=== PATIENT | female | born 1980 | race Two or more races ===

== ENCOUNTER 2017-07-20 07:04 | Observation (INO) | payer SELFPAY ==
[2017-07-20 07:30] VITALS: BP 112/71
[2017-07-20] MEDS ORDERED: FLUSH 10 ML SYR IVP PRN (07:35)
[2017-07-20] MEDS: LR(*) 1000 ML BAG 1,000 ML IV PRN ×2 (07:59→08:45)
[2017-07-20 08:16] LABS: PLATELET COUNT, AUTOMATED 187 K/uL (150-450)
[2017-07-20] MEDS ORDERED: NIFEdipine 10 MG CAP PO ONE (10:35)
--- NOTE | 2017-07-20 11:29 | RADIOLOGY IMAGING REPORT ---
FACILITY: [facility] [place] PATIENT NAME: Madeleine Remy : 1980 MR: [id number] V: [id number] EXAM DATE: ORDERING PHYSICIAN: LUIS A PARDO TECHNOLOGIST: [place] [facility] [place] Remy : 1980 Visit/Account:[id number] Date of Sevice: 07/20/2017 Limited OB ultrasound Indication: labor Comparison: None available FINDINGS: Intrauterine gestations: one presentation: Vertex heart rate: 140 bpm Amniotic fluid index: 13.2 cm Largest amniotic fluid pocket 4.2 cm Placenta: Anterior and to the right of midline without previa Cervix: Grossly closed Gestational Parameters: BPD: 8.39 cm 33 weeks and 6 days HC: 30.65 cm 34 weeks and 2 days AC: 28.50 cm 32 weeks and 4 days FL: 6.23 cm 32 weeks and 2 days Average ultrasound age (AUA): 33 weeks and 2 days Estimated gestational age based on given delivery date: 29 weeks and 0 days DEACON: 09/05/2017 based on today's ultrasound age Estimated weight (EFW): 2036 g +/-298 g EFW for given delivery date: Greater than 98th percentile IMPRESSION: 1. Single live intrauterine gestation; estimated ultrasound age of 33 weeks and 2 days, discordant fr om the given dating of 29 weeks and 0 days 2. Estimated weight is greater than the 98th percentile which may be related to improper dating . Report Dictated By: Kb Santana MD at 07/20/2017 11:22 AM Report E-Signed By: Kb Santaan MD at 07/20/2017 11:25 AM WSN:[id number]
[2017-07-22] MEDS ORDERED: PREN-127 PO (11:14)
== END 2017-07-20 12:20 | disposition home or self-care (01) ==
LOC: OB 07:04 → UNDODISOB 11:11
PROVIDERS: ADMIT Obstetrics & Gynecology; ATTEND Obstetrics & Gynecology
DX: O47.03 False labor before 37 completed weeks of gestation, third trimester (principal); Z3A.33 33 weeks gestation of pregnancy
CPT/HCPCS: 59025; 76815; 81001; 82731; 85025; 86850; 86900; 86901; G0378; G0379; J7120; 82310; 82374; 82435; 82565; 82947; 84132; 84295; 84520

== ENCOUNTER → 2017-08-01 | Outpatient (CLI) | payer SELFPAY ==
[~2017-08-01] MED LIST: PREN-127 PO
== END ==
LOC: LAB 09:03
PROVIDERS: ATTEND Obstetrics & Gynecology
DX: Z34.93 Encounter for supervision of normal pregnancy, unspecified, third trimester (principal)
CPT/HCPCS: 87081

== ENCOUNTER 2017-08-20 13:41 | Inpatient (IN) | payer SELFPAY ==
[~2017-08-20] VITALS: Ht 165.1 cm; Wt 78.0 kg
[2017-08-20 13:45] VITALS: BP 122/67; Ht 165.1 cm; Wt 78.0 kg
[2017-08-20] MEDS ORDERED: LIDOCAINE 1% LOCAL 300 MG/30ML INJ PRN (14:00)
[2017-08-20] MEDS ORDERED: fentaNYL CITR 100 MCG/2 ML AMP IVP PRN (14:00)
[2017-08-20] MEDS ORDERED: ceFAZolin(*) 2GM/D5W 50ML 50 ML IVPB PRN (14:00)
[2017-08-20] MEDS ORDERED: OXYTOCIN 30 UNIT/D5LR 500 ML 500 ML IV PRN ×2 (14:00)
[2017-08-20] MEDS ORDERED: METOCLOPRAMIDE 10 MG/2 ML SDV IVP PRN (14:00)
[2017-08-20] MEDS ORDERED: FLUSH 10 ML SYR IVP PRN (14:00)
[2017-08-20] MEDS ORDERED: FAMOTIDINE(*) 20MG/50ML PREMIX 50 ML IVPB PRN (14:00)
--- NOTE | 2017-08-20 14:57 | History & Physical ---
History of Present Illness EDC per LMP: Sep 06, 2017 Chief Complaint Vaginal bleeding History of Present Illness 37-year-old at 37w4d presented to clinic for routine OB visit. She was noted to have large amounts of watery, brown and blood-tinged discharge on exam. She is being admitted for monitoring and induction of labor for concern for early placental abruption. She reports good movement. She is feeling some contractions off and on, but nothing regular. [place] [facility] [place] had late care at 34 weeks 6 days. GBS negative. History Patient's Blood Type: O Positive Rubella Status: Immune Group B Strep Screen: Negative Obstetrical History: Hx 5 SVDs Past Medical History: PMH: Only one kidney PSH: Nephrectomy 7yo Allergies: Coded Allergies: No Known Drug Allergies (Unverified , 07/20/17) Social History: No T/E/D. . Speaks turkish. Family History: Patient reports no known family medical history. Med Rec Home Meds Reported Medications Vits W-Ca,Fe,Fa(<1MG) ( VITAMINS) 1 Each Tablet, 1 EACH PO DAILY, TAB 07/22/17 Review of Systems Constitutional: No Fever Neurological: No Syncope Cardiovascular: No Chest Pain Respiratory: No Shortness of Breath Gastrointestinal: No Nausea, No Vomiting, No Diarrhea Genitourinary: No Dysuria Musculoskeletal: No Pain Psychiatric: No Depression Exam General Exam Vital Signs VS reviewed General Apperance: Alert/Awake/No Acute Distress Neuro: No Gross deficits Eyes: Normal Extraocular Movement & Vison Cardiovascular: Regular Rate and Rhythm Respiratory: No Respiratory Distress, Clear to Auscultation Abdomen: Gravid - Non-Tender Musculoskeletal: No Weakness/Pain Extremities: No Cyanosis,Clubbing or Edema Integumentary: Skin Intact without Lesions or Rash Psychological: Alert & Oriented X3, Appropriate Mood & Affect Vaginal Discharge/Fluid?: Bloody Fluid Cervical Dialation: 4 Cervical Effacement (%): 75 Cervical Consistency: Moderate Cervical Position: Posterior Station: -2 Presentation: Vertex Uterine Contractions(Q min): 5 Uterine Contraction Strength: Mild UC Resting Tone: Soft Fetus Feeling Movement?: Yes FHT Category: I Medical Decision Making Pre-Admit Course Medical Record Review: Yes VTE Prophylasis: Adult Deep Vein Thrombosis/Pulmonary: No Pharmacological Contraindicati: Pt at Low Risk for VTE Mechanical Contraindications: Pt at Low Risk for VTE Assessment and Plan Problems: (1) Vaginal bleeding during Assessment & Plan: 37-year-old at 37w4d presents with presumed placental abruption based on bloody discharge. Will initiate induction with pitocin. heart tones look good. GBS negative. (2) Grand multiparity Assessment & Plan: Grand multiparity: Will be prepared for hemorrhage, she does not have a history of this. (3) Advanced maternal age during in third trimester Assessment & Plan: Advanced maternal age: Genetic screening is too expensive. (4) Supervision of high-risk Problem Qualifiers (1) Supervision of high-risk : Trimester: third trimester Qualified Codes: O09.93 - Supervision of high risk , unspecified, third trimester ROSALIE BRADY MD Aug 20, 2017 14:57
[2017-08-20] MEDS: LR(*) 1000 ML BAG 1,000 ML IV SCH ×2 (15:00→18:16)
[2017-08-20 15:39] LABS: PLATELET COUNT, AUTOMATED 188 K/uL (150-450)
[2017-08-20] MEDS ORDERED: LIDOCAINE/PF 2% 200MG/10ML AMP 200 MG/10 ML AMPUL EPI PRN (17:30)
[2017-08-20] MEDS ORDERED: EPIDURAL KEYS XX PRN (17:30)
[2017-08-20] MEDS ORDERED: LIDO/EPI 2% MPF 1:200,000 20ML EPI PRN (17:30)
[2017-08-20] MEDS ORDERED: FENTANYL/ROPIVACAINE 100 ML BAG EPI PRN (17:30)
[2017-08-20] MEDS ORDERED: BUPIVACAINE 0.25% MPF INJ EPI PRN (17:30)
[2017-08-20] MEDS ORDERED: fentaNYL CITR 100 MCG/2 ML AMP IT PRN (17:30)
[2017-08-20] MEDS ORDERED: ePHEDrine 25 MG/5 ML DISP.SYR IVP PRN (17:30)
[2017-08-20] MEDS ORDERED: BUPIVACAINE 0.5% INJ 30ML VIAL EPI PRN (17:30)
--- NOTE | 2017-08-20 17:49 | Labor Progress Note ---
Labor Subjective Progress Notes Subjective Pt is feeling more painful UCx. Baby is moving well. Labor Objective Vital Signs VS normal Vaginal Discharge/Fluid?: Bloody Fluid (Large amounts of port wine stained fluid after AROM) Cervical Dialation: 5 Cervical Effacement (%): 80 Cervical Consistency: Soft Cervical Position: Posterior Station: -1 Presentation: Vertex Uterine Contractions(Q min): 4 Uterine Contraction Strength: Moderate Fetus FHT Category: I General Exam General Appearance: Alert/Awake/No Acute Distress Cardiovascular: Normal Rhythm & Peripheral Pulses Respiratory: No Respiratory Distress, Clear to Auscultation Abdomen: Gravid - Non-Tender Musculoskeletal: No Weakness/Pain Extremities: No Cyanosis,Clubbing or Edema Integumentary: Skin Intact without Lesions or Rash Psychological: Alert & Oriented X3, Appropriate Mood & Affect Other Result Diagram: 08/20/17 9897 Assessment and Plan Problems: (1) Placental abruption Assessment & Plan: AROM performed with large amounts of port wine stained fluid returned. Discussed risks to baby with this finding, including need for emergent . I have recommended epidural right away in the event an emergency occurs. She is type and screened. Will monitor closely for worsening status. All of her questions were addressed. (2) Grand multiparity Assessment & Plan: Be prepared for hemorrhage. (3) Advanced maternal age during in third trimester Assessment & Plan: No or genetic screening. Problem Qualifiers (1) Placental abruption: Trimester: third trimester Qualified Codes: O45.93 - Premature separation of placenta, unspecified, third trimester ROSALIE BRADY MD Aug 20, 2017 17:49
[2017-08-20] MEDS ORDERED: ONDANSETRON 4 MG/2 ML VIAL ONE (17:50)
--- NOTE | 2017-08-20 18:25 | Anesthesia OB Pre-Anes Eval ---
History of Present Illness Anesthesia Start Date: Aug 20, 2017 Anesthesia Start Time: 17:40 OB Anesthesia Diagnosis: induction - medical EDC: Sep 05, 2017 : 6 Para: 5 Vital Signs: 120/74 88 18 Pain Ratin Result Diagram: 08/20/17 1447 Past Medical History Medical History: other (one kidney) Surgical History: other (kidney removal at 7 yrs old) Previous Anesthesia: general, epidural Attended Childbirth Classes?: No Hx Anesthesia Reactions: No Hx Family Anesthesia Reaction: No Current Medications: pitocin Home Meds Reported Medications Vits W-Ca,Fe,Fa(<1MG) ( VITAMINS) 1 Each Tablet, 1 EACH PO DAILY, TAB 07/22/17 Allergies: Coded Allergies: No Known Drug Allergies (Unverified , 07/20/17) Anesthesia OB ROS Neurological: No migraines/headaches, No seizures, No neuropathy, No other ENT: Denies Tooth caps, Denies Loose teeth, Denies Chipped teeth, Denies Dentures, Denies Bridges, Denies Retainers, Denies Veneers, Denies Implants, Denies Tongue ring, Denies Other Pulmonary: No asthma, No smoker (pks/day/yrs), No other Airway Class: lll Cardiovascular ROS: No edema, No arrhythmia, No other GI ROS: ice chips Last Solids Date: Aug 20, 2017 Last Solids Time: 10:00 ROS: Other (one kidney) Endocrine ROS: No diabetes, No gestational diabetes, No thyroid disorder, No other Musculoskeletal ROS: No low back pain, No low back injury, No scoliosis, No other ASA Classification: 2 Assessment and Plan Anesthesia Plan: NATASHA DUKE CRNA Aug 20, 2017 18:25
--- NOTE | 2017-08-20 18:28 | Procedure Note ---
Anesthetic Placement Note Anesthesia Plan: CSE Permit for Anesthesia Signed: Yes Anesthesia Technique: Patient Sitting Anesthesia Prep: Chlorhexidine Interspace: L 3-4 Local Anesthetic: 1% Lidocaine, 25 Gauge Needle Amount Local - cc's: 3 Anesthesia Needle: 17g Touhy/Schliff Anesthesia Attempts: 1 Loss of Resistance: Normal Saline Depth of NIMCO (cm): 4.5 Epidural Needle Placement: No CSF, No Blood, No Parasthesia Intrathecal Needle: 27 Gauge Pencan Cerebral Spinal Fluid: Yes, Clear Catheter Insertion (cm): 4 Catheter Type: Vincent - Spring Wound Epidural Dressing: Tegaderm, Tape Anesthesia Tray: Lot Number ([id number]), Expiration Date (10/03), Reference Number ([id number]) Anesthesia Medications: Intrathecal Dose: mcg Fentanyl (10), mg Marcaine MPF (2.5), Time (175) Epidural Test Dose: 1.5 Lido/Epi (1:200,000), Dose - mL (3), Time (175), Negative Epidural Infusion: 0.2% Ropivicaine, With Fentanyl 2mcg/ml, Start Time: (1810) Epidural Pump Setting: Bolus Dose - mL (6), Lockout - Minutes (20), Maintenance Rate - mL/hr (6), Maximum per Hour - mL (24) Complications: None NATASHA NICOLE CRNA Aug 20, 2017 18:28
[2017-08-20] MEDS ORDERED: METHYLERGONOVINE MAL 0.2MG/ML IM ONE (18:55)
[2017-08-20] MEDS ORDERED: CARBOPROST TROMETHAM 250MCG/ML IM ONLY ONE (18:55)
[2017-08-20] MEDS ORDERED: INFLUENZA VIRUS VAC 0.5 ML SYR IM ONLY ONE (19:40)
[2017-08-20] MEDS ORDERED: APAP/HYDROCODONE 325/5 TAB PO PRN (19:40)
[2017-08-20] MEDS ORDERED: MAGNESIUM HYDROXIDE* 30ML UDCP PO PRN (19:40)
[2017-08-20] MEDS ORDERED: HYDROCORTISONE 2.5% CR 30GM TB PR PRN (19:40)
[2017-08-20] MEDS ORDERED: IBUPROFEN 800 MG TAB PO SCH (19:40)
[2017-08-20] MEDS ORDERED: ACETAMINOPHEN 325 MG TAB PO PRN (19:40)
[2017-08-20] MEDS ORDERED: LANOLIN OINT 7 GM TUBE TP PRN (19:40)
[2017-08-20] MEDS ORDERED: GLYCERIN/WITCH HAZEL LEAF 1 PK TP PRN (19:40)
[2017-08-20] MEDS ORDERED: BENZOCAINE 20% 60 ML BTL TP PRN (19:40)
--- NOTE | 2017-08-20 19:40 | OB Delivery Note ---
Delivery Note Vaginal Delivery Type: Spont. Vaginal Delivery Delivery Date: Aug 20, 2017 Delivery Time: 19:31 Estimated Gestational Age(wks): 37.4 Labor Stage III (minutes): 3 Delivery Anesthesia: Epidural Infant Sex: Male Edmond Apgars: 1 Minute (8), 5 Minute (9) Delivery Complications: Nuchal Cord (x2), Other (Placental abruption) ROSALIE BRADY MD Aug 20, 2017 19:40
[2017-08-20] MEDS ORDERED: OXYTOCIN 10 UNIT/ML SDV ONE (20:22)
[2017-08-20] MEDS ORDERED: MISOPROSTOL 200 MCG TAB ONE (20:22)
--- NOTE | 2017-08-20 20:31 | Anesthesia Progress Note ---
Progress/Maintenance Anesthesia Note Date: Aug 20, 2017 Anesthesia Note Time: 18:20 Pain Intensity: 0 Pump: On Pump Rate (ML/HR): 6 Motor Level: Bending Knees-Bilateral Dilatation: 6 Position: Left, Tilt Assessment and Plan Anesthesia Plan: CSE Anesthesia Stop Day: Aug 20, 2017 Anesthesia Stop Time: 19:50 Epidural Catheter Removal: Removed Catheter Intact, Yes, Removed by: (Angelita JONES) NATASHA NICOLE CRNA Aug 20, 2017 20:31
[2017-08-20 23:00] VITALS: BP 128/74
[2017-08-20] MEDS: DOCUSATE CALCIUM 240 MG CAP PO SCH (23:06)
[2017-08-21 01:54] VITALS: BP 110/49
[2017-08-21 05:50] VITALS: BP 107/64
[2017-08-21 07:20] VITALS: BP 105/55
--- NOTE | 2017-08-21 08:06 | OB/GYN Progress Note ---
OB Subjective Progress Notes Subjective Doing well. Pain controlled with oral medications. Tolerating regular diet. Ambulating. Voiding. Normal lochia. No preeclampsia symptoms. OB Objective Physical Exam Vital Signs Date Time Temp Pulse Resp B/P (MAP) Pulse Ox O2 Delivery O2 Flow Rate FiO2 08/21/17 05:50 16 107/64 (78) Room Air 08/21/17 01:54 98.8 08/20/17 23:00 77 08/20/17 13:45 95 General Appearance: Alert/Awake/No Acute Distress Neurological: No Gross deficits Eyes: Normal Extraocular Movement & Vison Cardiovascular: Normal Rhythm & Peripheral Pulses Respiratory: No Respiratory Distress, Clear to Auscultation Abdomen: Soft, Non-Tender, Non-Distended, Fundus Firm Musculoskeletal: No Weakness/Pain Extremities: No Cyanosis,Clubbing or Edema Integumentary: Skin Intact without Lesions or Rash Psychological: Alert & Oriented X3, Appropriate Mood & Affect Result Diagram: 08/21/17 0545 Assessment and Plan Problems: (1) care and examination immediately after delivery Assessment & Plan: PPD#1. Meeting milestones. Desires discharge to home today. Discussed routine expectations. Questions answered. Follow up in clinic in 6wks for check. Will fill out [facility] paperwork for IUD in PP period. (2) Placental abruption Status: Resolved Problem Qualifiers (1) Placental abruption: Trimester: third trimester Qualified Codes: O45.93 - Premature separation of placenta, unspecified, third trimester ROSALIE BRADY MD Aug 21, 2017 08:06
[2017-08-21] MEDS ORDERED: LOR5/325 PO (08:07)
[2017-08-21] MEDS ORDERED: IBUP800T37 PO (08:07)
--- NOTE | 2017-08-21 08:09 | OB/GYN Discharge Summary ---
Discharge Summary Reason for Hosp/Final Diag: (1) care and examination immediately after delivery Hospital Course & Plan: PPD#1. Meeting milestones. Desires discharge to home today. Discussed routine expectations. Questions answered. Follow up in clinic in 6wks for check. Will fill out [facility] paperwork for IUD in PP period. (2) Placental abruption Status: Resolved Lates Vital Signs Vital Signs Date Time Temp Pulse Resp B/P (MAP) Pulse Ox O2 Delivery O2 Flow Rate FiO2 08/21/17 05:50 16 107/64 (78) Room Air 08/21/17 01:54 98.8 08/20/17 23:00 77 08/20/17 13:45 95 Weight (Pounds): 172 Result Diagram: 08/21/17 0545 Condition: Improved Discharge: Home, Self [facility] Meds Active Scripts Hydrocodone Bit/Acetaminophen (HYDROCODON-ACETAMINOPHEN 5-325) 1 Each Tablet, 1 EACH PO Q4-6H Y for pain, #20 TAB 0 Refills Prov:ROSALIE RICH MD 08/21/17 Reported Medications Vits W-Ca,Fe,Fa(<1MG) ( VITAMINS) 1 Each Tablet, 1 EACH PO DAILY, TAB 07/22/17 Follow up Referrals: 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
[2017-08-21] MEDS: IBUPROFEN 800 MG TAB PO SCH ×2 (09:09→15:57)
[2017-08-21] MEDS: DOCUSATE CALCIUM 240 MG CAP PO SCH (09:09)
[2017-08-21 12:02] VITALS: BP 91/52
--- NOTE | 2017-08-21 12:51 | DELIVERY NOTE ---
DELIVERY DATE: August 20, 2017 SURGEON: Uma Rich M.D. ANESTHESIA: Epidural by Liliana Newman CRNA PREOPERATIVE DIAGNOSIS: Intrauterine at 37 weeks and 4 days with placental abruption, presenting for induction of labor. POSTOPERATIVE DIAGNOSIS: 1. Intrauterine at 37 weeks and 4 days with placental abruption, presenting for induction of labor. 2. Delivery of viable male infant at 19:31 hours weighing 3050grams with Apgars of 8 at one minute and 9 at five minutes. PROCEDURE Spontaneous vaginal delivery. ESTIMATED BLOOD LOSS 300 mL. INDICATIONS This patient is a 37-year-old 6, para 5 who presented at 37 weeks and 4 days to her routine OB visit. At the time of presentation, she was noting dark brown vaginal discharge. With examination, she was noted to have copious dark blood-tinged discharge. She was, therefore, admitted for further evaluation and induction for presumed placental abruption. At the time of presentation to the floor, she was 4, 70 and -1 station. She was started on Pitocin to induce labor. An amniotomy was then performed at 17:22 hours, at which time she was 5, 80 and -1. There was copious port-wine stained fluid returned after amniotomy. She was able to progress and received an epidural for anesthetic. She was noted to be complete at 19:29 hours and was feeling the urge to push. PROCEDURE The patient was noted to be complete so was placed in dorsolithotomy position and prepped and draped in the usual fashion for vaginal delivery. She was asked to push and was able to deliver the infant spontaneously in the THOMAS position over an intact perineum. Double nuchal cord was noted and delivered around the 's head. The anterior shoulder delivered easily followed by the remainder of the , giving a spontaneous cry and spontaneous movement of all four extremities. The infant's oropharynx and nasopharynx were both suctioned. The was dried and stimulated and passed to mother's abdomen in good condition. After approximately one minute, the cord was clamped x2 and cut. Pitocin 10 units had been administered IM immediately after delivery of the . Additional 30 units of Pitocin was started in IV fluid to help firm the uterus. The placenta delivered immediately at 19:34 hours intact and was passed off the table. The uterine tone was noted to be firm almost immediately and there was 300 mL estimated blood loss at this time. 800 micrograms Cytotec was placed rectally for prophylaxis due to the grand multiparity and presumed placental abruption. The patient tolerated the procedure well and recovered in labor and delivery with her . All sponge and needle counts were correct at the end of this procedure. AIDA
[2017-08-21 15:50] VITALS: BP 104/60
[2017-08-21] MEDS ORDERED: MEASLES,MUMP,RUBELLA VAC 0.5ML SUBQ ONE (19:40)
[2017-08-21] MEDS ORDERED: DIPHTH/TETANUS/ACEL. PERTUSSIS IM ONLY ONE (19:40)
--- NOTE | 2017-08-21 21:27 | Anesthesia Post Eval Note ---
Anesthesia Post Eval Note Vital Signs 08/20/17 08/21/17 08/21/17 13:45 12:02 15:50 Temp 97.6 Pulse 73 Resp 18 B/P (MAP) 104/60 (75) Pulse Ox 95 O2 Delivery Room Air O2 Flow Rate 93.0 Pt able to participate in Eval: Yes Cardiovascular Status: Satisfactory Respiratory Status: Satisfactory Pain Managment: Satisfactory PO Nausea/Vomiting: Satisfactory Temperature Management: Satisfactory Mental Status: Satisfactory, Alert, Oriented X3 Post-Op Hydration Status: Satisfactory, Tolerating PO Well Anesthesia Type: NATASHA DUKE CRNA Aug 21, 2017 21:27
== END 2017-08-21 21:30 | disposition home or self-care (01) | DRG 774 ==
LOC: OB 13:41
PROVIDERS: ADMIT Obstetrics & Gynecology; ATTEND Obstetrics & Gynecology
PROC: 10E0XZZ Delivery of Products of Conception, External Approach (ICD-10-PCS; principal; 2017-08-20)
PROC: 10907ZC Drainage of Amniotic Fluid, Therapeutic from Products of Conception, Via Natural or Artificial Opening (ICD-10-PCS; 2017-08-20)
PROC: 3E033VJ Introduction of Other Hormone into Peripheral Vein, Percutaneous Approach (ICD-10-PCS; 2017-08-20)
DX: O45.93 Premature separation of placenta, unspecified, third trimester (principal); O69.81X0 Labor and delivery complicated by cord around neck, without compression, not applicable or unspecified; Z37.0 Single live birth; Z3A.37 37 weeks gestation of pregnancy; Z90.5 Acquired absence of kidney; Z23 Encounter for immunization
CPT/HCPCS: 36415; 85025; 85027; 86850; 86900; 86901; 90471; 90472; 90707; 90715; J2405; J2590; J3010; J7120; S0020